=== PATIENT | female | born 1965 | race African-American/Black ===

== ENCOUNTER 2017-08-09 19:18 | Emergency (ER) | payer MEDICAID ==
[~2017-08-09] VITALS: Ht 162.6 cm; Wt 71.0 kg
[2017-08-09] MEDS ORDERED: BACITRACIN ZINC OINT UDPKT TOP ONE (21:45)
[2017-08-09] MEDS ORDERED: TETANUS, DIPHTHERIA, PERTUSSIS VAC/PF 0.5ML (>7YR OLD) IM ONE (21:45)
[2017-08-09] MEDS ORDERED: HYDROCODONE/ACETAMINOPHEN 5/325MG TABLET PO ONE (21:45)
[2017-08-09] MEDS ORDERED: LIDOCAINE HCL 1% 20ML VIAL (Pyxis) INJ MC ONE (21:45)
[2017-08-09] MEDS: LIDOCAINE HCL/PF 1% 10 MG/ML 5ML VIAL INL NR ×2 (22:15→22:16)
[2017-08-09] MEDS ORDERED: KETOROLAC 60MG/2ML VIAL IM ONE (22:30)
[2017-08-09 23:15] VITALS: BP 131/81
== END 2017-08-09 23:32 | disposition home or self-care (01) ==
LOC: ER 22:04
DX: L02.414 Cutaneous abscess of left upper limb (principal); R56.9 Unspecified convulsions; F17.200 Nicotine dependence, unspecified, uncomplicated; Z90.710 Acquired absence of both cervix and uterus
CPT/HCPCS: 10060; 90471; 90715; 96372; 99284; J1885; J3490; X7700; Z7610